=== PATIENT | female | born 1940 | race Two or more races ===

== ENCOUNTER 2017-04-30 08:33 | Emergency (ER) | payer MEDICARE, OTHER ==
[~2017-04-30] VITALS: Ht 160 cm; Wt 56.7 kg
[~2017-04-30 08:33] MED LIST: ADULT LOW DOSE81 MG PO
[2017-04-30] MEDS ORDERED: LIPITOR20 MG PO (09:15)
[2017-04-30] MEDS ORDERED: AMLODIPINE BES2.5 MG PO (09:15)
[2017-04-30] MEDS ORDERED: DICLOFENAC SODI75 MG PO (09:16)
[2017-04-30] MEDS ORDERED: ACID CONTROLLER20 MG PO (09:16)
[2017-04-30] MEDS ORDERED: OMEPRAZOLE20 MG PO (09:16)
[2017-04-30] MEDS ORDERED: CIPRO250 MG PO (10:44)
== END 2017-04-30 10:59 | disposition home or self-care (01) ==
LOC: ED 08:33
DX: N39.0 Urinary tract infection, site not specified (principal); I25.10 Atherosclerotic heart disease of native coronary artery without angina pectoris; Z79.82 Long term (current) use of aspirin; Z79.899 Other long term (current) drug therapy
CPT/HCPCS: 73502; 80053; 81001; 82150; 83690; 85025; 87077; 87088; 87186; 96374; 99283; J1885